=== PATIENT | female | born 1960 | race Caucasian/White ===

== ENCOUNTER 2020-07-03 13:44 | Emergency (ER) | payer OTHER ==
--- OUTSIDE RECORDS SUMMARY | 2020-07-03 13:49 | XMS REPORT | Continuity of Care Document ---
:1960 Author Organization [facility] t Address [address] [place] [address] Care Team Providers Name Role Phone Leif Prather MD Primary Care Physician Jose Attending Clinician [phone] [place] CHE, Loulou Attending Clinician Belkis Ivory Attending Clinician CHRISTI Attending Clinician Unavailable Antonio Murphy Attending Clinician GUANAKITO Admitting Clinician Unavailable Belkis Ivory Admitting Clinician Antonio Murphy Admitting Clinician Payers Payer Name Policy Type Policy Effective Date Expiration Date Sour ce Number CIGNACIGNA OPEN [id number] 2016 [place] ACCESS/NETWORKxx 00:00:00 Methodis t [id number] [id number] Problems Condition Condition Condition Status Onset Resolution Last Treating Co mments Source Name Details Category Date Date Treatment Clinician Date Acid Problem Active 2018-01-30 Memor ia reflux 05:00:30 l (finding) Acid [place] reflux (finding) Active Problem 01/30/2018 [facility] Hiatal Problem Active 2018-01-30 Memor ia hernia 05:00:30 l (disorder) Hiatal Herm tariq hernia (disorder) Active Problem 01/30/2018 [facility] Hypothyroi Problem Active 2018-01-30 M emoria dism 05:00:30 l (disorder) Atul n Hypothyroi dism (disorder) Active Problem 01/30/2018 [facility] History of History of Problem Resolve [facility] Bunion Bunion [facility] [place] [facility] History of History of Problem Resolve Univers Ganglion, Ganglion, d ity of joint joint [place] [facility] History of History of Problem Resolve Univers gastric gastric d ity of ulcer ulcer [place] [facility] History of History of Problem Resolve Univers hiatal hiatal d ity of hernia hernia [place] [facility] History of History of Problem Resolve Univers malignant malignant d ity of neoplasm neoplasm [place] of cervix of cervix Phys ici ans History of History of Problem Resolve Univers Sprain of Sprain of d ity of deltoid deltoid [place] ligament ligament Physic i of right of right ans ankle, ankle, initial initial encounter encounter Sprain of Sprain of Problem Active Uni vers left left ity of rotator rotator [place] cuff cuff Physici capsule, capsule, ans subsequent subsequent encounter encounter History of History of Problem Resolve Univers thyroid thyroid d ity of disorder disorder [place] [facility] Rupture of Rupture of Problem Active U nivers left left ity of biceps biceps [place] tendon tendon Physici ans Spontaneou Spontaneou Problem Active U nivers s rupture s rupture ity of of other of other [place] tendon of tendon of Phys ici left upper left upper an s arm arm History of Past Illness Condition Condition Condition Status Onset Resolution Last Treating Co mments Source Name Details Category Date Date Treatment Clinician Date Stress Problem 2017-022018-01-30 2018-01-30 M emoria incontinen 2-17 05:00:30 05:00:30 l ce Stress 06:00: Home (female) incontinen 00 (male) ce (female) (male) 01/28/2018 01/30/2018 [facility] Allergies, Adverse Reactions, Alerts Allergy Allergy Status Severity Reaction(s) Onset Inactive Treating Comm ents Source Name Type Date Date Clinician No Known DA Active U 2015-02 DAYLIN Allergie 0-26 Maria [facility] s [facility]: [facility] No Known No Known Active Memori a Medicati Medicati l on on Home Benson s s Social History Social Habit Start Date Stop Date Quantity Comments Source Tobacco use and 2019-10-30 2019-10-30 Never used [facility] [place] ethodist exposure 00:00:00 00:00:00 Alcohol intake 2019-10-30 2019-10-30 Current drinker [place] on [facility] 00:00:00 00:00:00 of alcohol (finding) Alcohol Comment 2019-10-28 2019-10-28 socially Yakov Tamayo ethodist 00:00:00 00:00:00 Sex [birth year] At [birth year] Yakov Tamayo ethodist 00:00:00 00:00:00 Smoking Status Start Date Stop Date Source Never smoker Yakov staley Social History 2016-01-12 14:43:22 2016-01-12 14:43:22 [facility] Medications Ordered Filled Start Stop Current Ordering Indication Dosage Frequency Signature Comments Components Source Medication Medication Date Date Medication? Clinician (SIG) Name Name omeprazole 2020-0 Yes 20mg Q.5D Take 20 mg [place] (PriLOSEC) 9-16 by mouth 2 Met hodi 20 MG 09:44: (two) st capsule 29 times a day. levothyroxi 2020-0 Yes 50ug QD Take 50 Anish ston ne 9-16 mcg by Methodi (SYNTHROID) 09:44: mouth st 50 mcg 29 daily. tablet estradioL 2020-0 Yes 1{patch Q.5W Place 1 Ho [facility] (VIVELLE-DO 9-16 } patch on Meth cj T) 0.0375 09:44: the skin 2 st mg/24 hr 29 (two) times a week. Morphine 2017-02 No 2 mg, IV Memor ia 2-17 Push, l 21:05: q5min PRN for pain severe (7-10), order duration: 5 doses, first dose 01/28/18 15:05:00 FOOD INSPECTOR, stop date Limited # of times Demerol HCl 2017-02 No 12.5 mg = M emoria 2-17 0.5 mL, l 21:05: Injection, IV Push, q5min PRN for Pain Mild (1-3), order duration: 4 doses, first dose 01/28/18 15:05:00 FOOD INSPECTOR, stop date Limited # of times promethazin 2017-02 No 12.5 mg, Me moria e IVPB 2-17 IV l 21:05: Piggyback, Once PRN for nausea/vom iting, infuse over 15 minutes, first dose 12/17/18 15:05:00 FOOD INSPECTOR Misc 2017-02 No 600 mL, Memoria Medication 2-17 Soln-IV, l 20:56: IV, Once, [place] 00 first dose 01/28/18 14:56:00 FOOD INSPECTOR, stop date 01/28/18 14:56:00 FOOD INSPECTOR ketorolac 2017-02 No 30 mg = 1 Mem oria 2-17 mL, l 20:22: Injection, Home 00 IV, Once, first dose 01/28/18 14:22:00 FOOD INSPECTOR, stop date 01/28/18 14:22:00 FOOD INSPECTOR ondansetron 2017-02 No 4 mg = 2 Me moria 2-17 mL, l 20:22: Injection, [place] 00 IV, Once, first dose 01/28/18 14:22:00 FOOD INSPECTOR, stop date 01/28/18 14:22:00 FOOD INSPECTOR dexamethaso 2017-02 No 4 mg = 1 Me moria ne 2-17 mL, l 20:22: Injection, [place] 00 IV, Once, first dose 01/28/18 14:22:00 FOOD INSPECTOR, stop date 01/28/18 14:22:00 FOOD INSPECTOR propofol 2017-02 No 200 mg = Memor ia 2-17 20 mL, l 20:21: Emulsion, Home 00 IV, Once, first dose 01/28/18 14:21:00 FOOD INSPECTOR, stop date 01/28/18 14:21:00 FOOD INSPECTOR lidocaine 2017-02 No 100 gm = 5 Me moria 2-17 mL, l 20:21: Injection, [place] 00 IV, Once, first dose 01/28/18 14:21:00 FOOD INSPECTOR, stop date 01/28/18 14:21:00 FOOD INSPECTOR fentaNYL 2017-02 No 100 mcg = Gavino luisito 2-17 2 mL, l 20:18: Injection, [place] 00 IV, Once, first dose 01/28/18 14:18:00 FOOD INSPECTOR, stop date 01/28/18 14:18:00 FOOD INSPECTOR midazolam 2017-02 No 2 mg = 2 Gavino luisito 2-17 mL, l 20:18: Injection, Home 00 IV, Once, first dose 01/28/18 14:18:00 FOOD INSPECTOR, stop date 01/28/18 14:18:00 FOOD INSPECTOR ceFAZolin 2017-02 No 2 gm, Memoria 2-17 Soln-IV, l 20:16: IV, Once, [place] first dose 01/28/18 14:16:00 FOOD INSPECTOR, stop date 01/28/18 14:16:00 FOOD INSPECTOR Pain Ease 2017-02 No 1 sprays, Mem oria topical 2-17 [place], l spray 19:00: TOP, Once, Atul n first dose 01/28/18 13:00:00 FOOD INSPECTOR, stop date 01/28/18 13:00:00 FOOD INSPECTOR, Apply topically for 4 - 10 seconds from a distance of 3 - 7 inches from the procedure site Cefazolin 2017-02 No 2 gm, Memoria 2-17 Soln-IV, l 19:00: IV Home Piggyback, Once, infuse over 30 minutes, first dose 01/28/18 13:00:00 FOOD INSPECTOR, stop date 01/28/18 13:00:00 FOOD INSPECTOR, Prophylaxi s LR 1,000 mL 2017-02 No 1,000 mL, M emoria 2-17 IV, 100 l 18:47: mL/hr, Home 00 start date 01/28/18 12:47:00 FOOD INSPECTOR, For Adults levothyroxi 2017-02 Yes 50 mcg = 1 Memoria ne 50 mcg 2-10 caps, l (0.05 mg) 18:30: Oral, [place] oral 00 Daily, 0 capsule Refill(s) Demerol HCl 2016-02 No 12.5 mg = M emoria 2-15 0.5 mL, l 15:31: Injection, [place] 00 IV Push, q5min PRN for Pain Mild (1-3), order duration: 4 doses, first dose 01/26/17 9:31:00 FOOD INSPECTOR, stop date Limited # of times morphine 2016-02 No 1 mg = 0.1 Mem oria 2-15 mL, l 15:31: Injection, Home 00 IV Push, q5min PRN for Pain Moderate (4-6), order duration: 5 doses, first dose 01/26/17 9:31:00 FOOD INSPECTOR, stop date Limited # of times ondansetron 2016-02 No 4 mg = 2 Me moria 2-15 mL, l 15:31: Injection, Home 00 IV Push, q30min PRN for nausea/vom iting, order duration: 2 doses, first dose 01/26/17 9:31:00 FOOD INSPECTOR, stop date Limited # of times Misc 2016-02 No 600 mL, Memoria Medication 2-15 Soln-IV, l 15:26: IV, Once, first dose 01/26/17 9:26:00 FOOD INSPECTOR, stop date 01/26/17 9:26:00 FOOD INSPECTOR morphine 2016-02 No 10 mg = 1 Gavino luisito 2-15 mL, l 15:14: Injection, Home 00 IV, Once, first dose 01/26/17 9:14:00 FOOD INSPECTOR, stop date 01/26/17 9:14:00 FOOD INSPECTOR ondansetron 2016-02 No 4 mg = 2 Me moria 2-15 mL, l 14:09: Injection, [place] 00 IV, Once, first dose 01/26/17 8:09:00 FOOD INSPECTOR, stop date 01/26/17 8:09:00 FOOD INSPECTOR dexamethaso 2016-02 No 8 mg = 2 Me moria ne 2-15 mL, l 13:43: Injection, [place] 00 IV, Once, first dose 01/26/17 7:43:00 FOOD INSPECTOR, stop date 01/26/17 7:43:00 FOOD INSPECTOR lidocaine 2016-02 No 1 patti, Memori a topical 2-15 Soln, IV, l 13:33: Once, first dose 01/26/17 7:33:00 FOOD INSPECTOR, stop date 01/26/17 7:33:00 FOOD INSPECTOR rocuronium 2016-02 No 40 mg = 4 Me moria 2-15 mL, l 13:31: Injection, [place] 00 IV, Once, first dose 01/26/17 7:31:00 FOOD INSPECTOR, stop date 01/26/17 7:31:00 FOOD INSPECTOR propofol 2016-02 No 200 mg = Memor ia 2-15 20 mL, l 13:31: Emulsion, [place] 00 IV, Once, first dose 01/26/17 7:31:00 FOOD INSPECTOR, stop date 01/26/17 7:31:00 FOOD INSPECTOR lidocaine 2016-02 No 5 mL, Memoria 2-15 Injection, l 13:31: IV, Once, Home 00 first dose 01/26/17 7:31:00 FOOD INSPECTOR, stop date 01/26/17 7:31:00 FOOD INSPECTOR ceFAZolin 2016-02 No 1 gm, Memoria 2-15 Soln-IV, l 13:26: IV, Once, Home 00 first dose 01/26/17 7:26:00 FOOD INSPECTOR, stop date 01/26/17 7:26:00 FOOD INSPECTOR ropivacaine 2016-02 No 150 mg = Me moria 2-15 30 mL, l 13:15: Injection, [place] 00 Nerve Block, Once, first dose 01/26/17 7:15:00 FOOD INSPECTOR, stop date 01/26/17 7:15:00 FOOD INSPECTOR midazolam 2016-02 No 2 mg = 2 Gavino luisito 2-15 mL, l 13:12: Injection, Home 00 IV, Once, first dose 01/26/17 7:12:00 FOOD INSPECTOR, stop date 01/26/17 7:12:00 FOOD INSPECTOR fentaNYL 2016-02 No 100 mcg = Gavino luisito 2-15 2 mL, l 13:12: Injection, [place] 00 IV, Once, first dose 01/26/17 7:12:00 FOOD INSPECTOR, stop date 01/26/17 7:12:00 FOOD INSPECTOR Pain Ease 2016-02 No 1 sprays, Mem oria topical 2-15 [place], l spray 13:00: TOP, Once, Atul n 00 first dose 01/26/17 7:00:00 FOOD INSPECTOR, stop date 01/26/17 7:00:00 FOOD INSPECTOR, Apply topically for 4 - 10 seconds from a distance of 3 - 7 inches from the procedure site Cefazolin 2016-02 No 1 gm, Memoria 2-15 Soln-IV, l 13:00: IV Home 00 Piggyback, Once, infuse over 30 minutes, first dose 01/26/17 7:00:00 FOOD INSPECTOR, stop date 01/26/17 7:00:00 FOOD INSPECTOR, Prophylaxi s Vitamin C 2016-02 Yes Daily, 0 Gavino luisito 2-15 Refill(s) l 12:29: [place] 00 Vitamin B 2016-02 Yes 0 Memoria Complex 100 2-15 Refill(s) l 12:28: Home 00 Vitamin D 2016-02 Yes tabs, Memoria with 2-15 Oral, l Minerals 12:28: Daily, 0 Kari nn oral tablet 00 Refill(s) LR 1,000 mL 2016-02 No 1,000 mL, M emoria 2-15 IV, 100 l 12:05: mL/hr, [place] 00 start date 01/26/17 6:05:00 FOOD INSPECTOR, For Adults Misc 2015-02 No Mirela 50 mL, Memoria Medication 2-06 Russell-Robe Soln-IV, l 17:31: rts IV, Once, [place] 00 first dose 01/18/16 11:31:00 FOOD INSPECTOR, stop date 01/18/16 11:31:00 FOOD INSPECTOR Misc 2015-02 No Mirela 1,000 mL, Memor ia Medication 2-06 [place]-R[place] Soln-IV, l 17:13: rts IV, Once, Home 00 first dose 01/18/16 11:13:00 FOOD INSPECTOR, stop date 01/18/16 11:13:00 FOOD INSPECTOR glycopyrrol 2015-02 No Mirela 0.4 mg = 2 Memoria ate 2-06 [place]-Robe mL, l 17:11: rts Injection, Home 00 IV, Once, first dose 01/18/16 11:11:00 FOOD INSPECTOR, stop date 01/18/16 11:11:00 FOOD INSPECTOR neostigmine 2015-02 No Mirela 3 mg = 3 Memoria 2-06 [place]-Robe mL, l 17:11: rts Injection, Home 00 IV, Once, first dose 01/18/16 11:11:00 FOOD INSPECTOR, stop date 01/18/16 11:11:00 FOOD INSPECTOR dexamethaso 2015-02 No Mirela 4 mg = 1 Memoria ne 2-06 Russell-Robe mL, l 15:52: rts Injection, Home 00 IV, Once, first dose 01/18/16 9:52:00 FOOD INSPECTOR, stop date 01/18/16 9:52:00 FOOD INSPECTOR ondansetron 2015-02 No Mirela 4 mg = 2 Memoria 2-06 [place]-Robe mL, l 15:52: rts Injection, Home 00 IV, Once, first dose 01/18/16 9:52:00 FOOD INSPECTOR, stop date 01/18/16 9:52:00 FOOD INSPECTOR lidocaine 2015-02 No Mirela 1 patti, Mem oria topical 2-06 [place]-R[place] Soln, IV, l 15:34: rts Once, Home 00 first dose 01/18/16 9:34:00 FOOD INSPECTOR, stop date 01/18/16 9:34:00 FOOD INSPECTOR lidocaine 2015-02 No Mierla 5 mL, Gavino luisito 2-06 Russell-Robe Injection, l 15:33: rts IV, Once, [place] 00 first dose 01/18/16 9:33:00 FOOD INSPECTOR, stop date 01/18/16 9:33:00 FOOD INSPECTOR propofol 2015-02 No Mirela 200 mg = Me moria 2-06 Russell-Robe 20 mL, l 15:33: rts Emulsion, [place] 00 IV, Once, first dose 01/18/16 9:33:00 FOOD INSPECTOR, stop date 01/18/16 9:33:00 FOOD INSPECTOR rocuronium 2015-02 No Mirela 50 mg = 5 Memoria 2-06 [place] mL, l 15:33: rts Injection, Home 00 IV, Once, first dose 01/18/16 9:33:00 FOOD INSPECTOR, stop date 01/18/16 9:33:00 FOOD INSPECTOR ceFAZolin 2015-02 No Mirela 1 gm, Gavino luisito 2-06 [place] Powder-Inj l 15:28: rts , IV, [place] 00 Once, first dose 01/18/16 9:28:00 FOOD INSPECTOR, stop date 01/18/16 9:28:00 FOOD INSPECTOR ropivacaine 2015-02 No Mirela 150 mg = Memoria 2-06 [place] 30 mL, l 15:00: rts Injection, Home 00 IV, Once, first dose 01/18/16 9:00:00 FOOD INSPECTOR, stop date 01/18/16 9:00:00 FOOD INSPECTOR midazolam 2015-02 No Mirela 2 mg = 2 M emoria 2-06 Russell-Robe mL, l 14:50: rts Injection, [place] 00 IV, Once, first dose 01/18/16 8:50:00 FOOD INSPECTOR, stop date 01/18/16 8:50:00 FOOD INSPECTOR fentaNYL 2015-02 No Mirela 100 mcg = M emoria 2-06 Russell-Robe 2 mL, l 14:50: rts Injection, [place] 00 IV, Once, first dose 01/18/16 8:50:00 FOOD INSPECTOR, stop date 01/18/16 8:50:00 FOOD INSPECTOR ceFAZolin 2015-02 No Junior G 1 gm, Mem oria 2-06 [place] Soln-IV, l 14:00: IV Home 00 Piggyback, Once, infuse over 30 minutes, first dose 01/18/16 8:00:00 FOOD INSPECTOR, stop date 01/18/16 8:00:00 FOOD INSPECTOR, Prophylaxi s lidocaine 2015-02 No Jay Tamayo 0.5 mL, Me moria 1% 2- Lastoczy Injection, l injectable 14:00: Subcutaneo H ermann solution 00 us, Once, first dose 01/18/16 8:00:00 FOOD INSPECTOR, stop date 01/18/16 8:00:00 FOOD INSPECTOR LR 1,000 mL 2015-02 No Jay M 1,000 mL, Memoria 2-06 Lastoczy IV, 100 l 13:29: mL/hr, Home 00 start date 01/18/16 7:29:00 FOOD INSPECTOR, For Adults Estradiol 2015-02 Yes 1 patches, Me moria Patch 1-30 TOP, l 0.0375 14:41: qWeek, 0 Home mg/24 hours 00 Refill(s) weekly transdermal film, extended release Estradiol 2015-02 Yes 1 patches, Me moria Patch 1-30 TOP, l 0.0375 14:41: qWeek, 0 [place] mg/24 hours 00 Refill(s) weekly transdermal film, extended release Omeprazole 2015-02 Yes 40 mg = 2 Me moria 20 MG 1-30 tabs, l Enteric 14:40: Oral, [place] Coated 00 Daily, 0 Tablet Refill(s) omeprazole 2015-02 Yes 40 mg = 2 Me moria 20 mg oral 1-30 tabs, l delayed 14:40: Oral, Home release 00 Daily, 0 tablet Refill(s) Thyroid Thyroid Yes [facility] TABS TABS [facility] [place] [facility] Immunizations Ordered Immunization Filled Immunization Date Status Commen ts Source Name Name PFIZER COVID-19 MRNA 2020-05-26 Completed [place] VACCINATION 00:00:00 [facility] PFIZER COVID-19 MRNA 2020-04-28 Completed [place] VACCINATION 00:00:00 [facility] Vital Signs Vital Name Observation Time Observation Value Comments Source Systolic (mm Hg) 2018-01-28 21:30:00 Gavino Bhat Diastolic (mm Hg) 2018-01-28 21:30:00 Cristine Bhat Heart Rate 2018-01-28 21:30:00 [facility] Respitory Rate 2018-01-28 21:30:00 [facility] al [place] Systolic (mm Hg) 2018-01-28 21:15:00 Gavino rial Home Diastolic (mm Hg) 2018-01-28 21:15:00 Mem orial [place] Heart Rate 2018-01-28 21:15:00 [facility] [place] Respitory Rate 2018-01-28 21:15:00 Memori al [place] Systolic (mm Hg) 2018-01-28 21:10:00 Gavino rial Home Diastolic (mm Hg) 2018-01-28 21:10:00 Mem orial [place] Respitory Rate 2018-01-28 21:10:00 Memori al Home Heart Rate 2018-01-28 21:10:00 [facility] [place] Temperature Oral (F) 2018-01-28 21:00:00 36.5 Salma [facility] [place] Height 2018-01-28 18:59:00 65 cm [facility] Temperature Oral (F) 2018-01-28 18:59:00 36.7 [facility] [place] Height 2017-04-30 15:47:00 66 [in_us] [facility] Physician s Weight 2017-04-30 15:47:00 114 [lb_av] [facility] Physician s Body Mass Index 2017-04-30 15:47:00 18.4 kg/m2 [facility] Physician s Heart Rate 2017-01-26 15:45:00 [facility] [place] Systolic (mm Hg) 2017-01-26 15:45:00 Gavino rial Home Diastolic (mm Hg) 2017-01-26 15:45:00 Mem orial Home Respitory Rate 2017-01-26 15:45:00 Memori al Home Systolic (mm Hg) 2017-01-26 15:40:00 Gavino rial Home Diastolic (mm Hg) 2017-01-26 15:40:00 Mem orial [place] Respitory Rate 2017-01-26 15:40:00 Memori al Home Heart Rate 2017-01-26 15:40:00 [facility] Respitory Rate 2017-01-26 15:35:00 Memori al [place] Systolic (mm Hg) 2017-01-26 15:35:00 Gavino rial Home Diastolic (mm Hg) 2017-01-26 15:35:00 Mem orial [place] Heart Rate 2017-01-26 15:35:00 [facility] Temperature Oral (F) 2017-01-26 15:26:00 36.2 Salma [facility] [place] Height 2017-01-26 12:21:00 165 cm [facility] [place] Temperature Oral (F) 2017-01-26 12:21:00 36.9 [facility] Height 2017-01-17 18:21:00 165 cm [facility] [place] Systolic (mm Hg) 2016-01-18 18:00:00 Gavino rial Home Heart Rate 2016-01-18 18:00:00 [facility] Respitory Rate 2016-01-18 18:00:00 Memori al Home Systolic (mm Hg) 2016-01-18 17:50:00 Gavino rial Home Respitory Rate 2016-01-18 17:50:00 Memori al Home Heart Rate 2016-01-18 17:50:00 [facility] Systolic (mm Hg) 2016-01-18 17:45:00 Gavino rial [place] Respitory Rate 2016-01-18 17:45:00 Memori al [place] Heart Rate 2016-01-18 17:45:00 [facility] [place] Temperature Oral (F) 2016-01-18 17:36:00 36.2 [facility] Temperature Oral (F) 2016-01-18 14:00:00 36.5 [facility] Weight 2016-01-12 14:38:00 [facility] [place] Height 2016-01-12 14:38:00 165 cm [facility] Procedures Procedure Date / Time Performing Clinician Source Performed MANOMETRY, ESOPHAGEAL 2019-10-29 08:43:00 Claudia Alfonso n [facility] MONITORING, ESOPHAGEAL 2019-10-29 08:43:00 Claudia Alfonso on [facility]ism PH, 24 HOUR COVID-19 QUALITATIVE 2019-10-27 09:35:00 Claudia Alfonso [facility] PCR right shoulder scope [facility] He rmann breast implants [facility] [place] replaced left shoulder scope [facility] Her garnett breast augmentation [facility] Her garnett hysterectomy [facility] Home left wrist [facility] fracture<sup>1</sup> tumor from abdomen [facility] tariq removed History of Wrist [facility] surgery Physicians History of Hysterectomy [facility] Physicians History of Rotator cuff [facility] repair Physicians History of Carpal [facility] tunnel surgery Physicians Plan of Care Planned Activity Planned Date Details Comments Source Future Scheduled 2020-09-12 INFLUENZA VACCINE [place] [facility] Test 00:00:00 [code = INFLUENZA VACCINE] Future Scheduled 2011-04-27 BREAST CANCER [place] [facility] Test 00:00:00 SCREENING [code = BREAST CANCER SCREENING] Future Scheduled 2011-04-27 COLONOSCOPY SCREENING [place] [facility] Test 00:00:00 [code = COLONOSCOPY SCREENING] Future Scheduled 2011-04-27 SHINGLES VACCINES [place] [facility] Test 00:00:00 (#1) [code = SHINGLES VACCINES (#1)] Future Scheduled 1982 Screening for [place] [facility] Test 00:00:00 malignant neoplasm of cervix (procedure) [code = 413736347] Future Scheduled 1979-04-27 Hepatitis C screening [place] [facility] Test 00:00:00 (procedure) [code = 392686528] Encounters Start End Encounter Admission Attending Care Care Encounter Source Date/Time Date/Time Type Type Clinicians Facility Department ID 2019-09-19 Outpatient MHNE ABHI [id number] [address] 08:44:30 2020-06-21 2020-06-21 Outpatient CLOVIS Garcia [facility] [id number] 00:00:00 00:00:00 Sadie [id number] 2020-05-26 2020-05-26 Outpatient [facility] [id number] [place] 00:00:00 00:00:[address] 2020-04-28 2020-04-28 Outpatient [facility] [id number] [place] 00:00:00 00:00:[address] 2020-02-21 2020-02-21 Emergency E MHNE MHNE [id number] MHNE 13:50:00 13:50:00 2020-02-20 2020-02-20 Emergency E MHNE MHNE [id number] MHNE 10:29:00 10:29:00 2020-02-18 2020-02-18 Outpatient MHNE ABHI [id number] MHNE 08:00:00 08:00:00 2019-10-29 2019-10-29 [facility] [id number] [place] 00:00:00 00:00:00 APURV [address] 2019-10-27 2019-10-27 Outpatient GUANAKITO, [facility] [id number] [address] [place] [address] 00:00:00 00:00:00 APURV [address] 2018-01-28 2018-01-28 Outpatient Ivory, [id number] 12:43:00 15:54:00 [place]ia Tamayo 8 2017-04-30 2017-04-30 Appointmen CHRISTI, UTP UTP [id number] Univers 15:30:00 15:30:00 t; JUNIOR Orthopedic Josselin M.D. Surgery - [place] OWUSU M.D. ans 2017-03-19 2017-03-19 Appointmen CHRISTI, AUGUSTO UTP [id number] Univers 15:30:00 15:30:00 t; Josselin OWUSU M.D. [place] [facility] OWUSU M.D. [facility] 2017-01-26 2017-01-26 Outpatient Scobercea, [id number] 06:02:30 10:19:00 Junior Alvarez 8 2016-12-21 2016-12-21 Outpatient Scobercea, [id number] 14:37:56 23:59:59 Junior Alvarez 8 2016-01-18 2016-01-[address] 06:54:28 12:29:00 [facility] Results Test Description Test Time Test Comments Results Result [facility] e Comments - US ABDOMEN 2019-07-25 FAX: Branidn COMPLETE 14:49:00 Rocky Woodard Jr, MD [phone] [place]: St: REG FAX: Angelica Lopez [phone] Name: TINO GAUTHIER [facility] : 1960 Age/S: 59/F [address] Unit #: [id number] Loc: [place] [address] Phys: Rocky Woodard Jr, MD Acct: [id number] Dis Date: Status: REG CLI PHONE #: [phone] Exam Date: 07/25/2019 1353 FAX #: [phone] Reason: EPIGASTRIC PAIN EXAMS: CPT CODE: [id number] US ABDOMEN COMPLETE [id number] EXAMINATION: - US ABDOMEN COMPLETE. LOCATION: S17. HISTORY: Epigastric/abdominal pain, nausea. COMPARISON: None. TECHNIQUE: Examination of the liver, spleen, kidneys, pancreas, gallbladder, bile ducts, aorta and inferior vena cava was performed. FINDINGS: The visualized liver parenchyma is homogeneous in echogenicity. The main portal vein is patent. There is no intra or extrahepatic biliary ductal dilatation. The common duct measures 4 mm. The gallbladder demonstrates possible dependent sludge without wall thickening. The visualized pancreatic head and body appears unremarkable, evaluation of the tail is limited by overlying bowel gas. Spleen is unremarkable in size. The right and left kidney measure 10.2 cm and 10 cm respectively. There is no hydronephrosis. The visualized portions of abdominal aorta demonstrates atherosclerosis. IVC appear unremarkable. IMPRESSION: Possible gallbladder sludge. at 1440 Reported and signed by: Everette Ireland MD CC: Rocky Woodard Jr; Angelica Pulliam Technologist: Nidhi Shahid RDSD Trnscrd Date/Time/By: 07/25/2019 (4940) : By: [email or web address] PAGE 1 Signed Report FAX: Rocky Meyer Jr, MD [phone] [place]: St: REG FAX: Angelica Lopez [phone] Name: TINO GAUTHIER [facility] [place] : 1960 Age/S: 59/F [address] Unit #: [id number] Loc: [place] [address] Phys: Rocky Woodard Jr, MD Acct: [id number] Dis Date: Status: REG CLI PHONE #: [phone] Exam Date: 07/25/2019 0411 FAX #: [phone] Reason: EPIGASTRIC PAIN EXAMS: CPT CODE: [id number] US ABDOMEN COMPLETE [id number] <Continued> Orig Print D/T: S: 07/25/2019 (9315) PAGE 2 Signed Report
[2020-07-03] MEDS ORDERED: MORPHINE 4 MG/ML SYR ONE (14:09)
[2020-07-03] MEDS ORDERED: ONDANSETRON 4 MG/2 ML VIAL ONE (14:10)
--- NOTE | 2020-07-03 14:17 | RAD REPORT ---
EXAM DESCRIPTION: RAD - Forearm Right - 07/03/2020 2:09 pm CLINICAL HISTORY: FB;Pain Laceration COMPARISON: No comparisons FINDINGS: No fracture or radiopaque foreign body is seen.
[2020-07-03] MEDS ORDERED: HYDROMORPHONE HCL 0.5 MG/0.5 ML INJ ONE ×2 (14:24→14:36)
[2020-07-03] MEDS ORDERED: KETOROLAC 30 MG/ML INJ ONE (15:25)
--- NOTE | 2020-07-03 15:47 | EDPHYS ---
Physician Documentation [facility] Name: Dana Salinas Age: 60 yrs Sex: Female : 1960 Arrival Date: 07/03/2020 Time: 13:45 Bed 6 Private MD: ED Physician Mihir Naik HPI: 07/03 15:48 This 60 yrs old Female presents to ER via EMS with complaints of Stingray jr8 injury. 15:48 The complaints affect the palmar aspect of right forearm. Onset: The symptoms/episode jr8 began/occurred acutely, today. Modifying factors: The symptoms are alleviated by nothing. the symptoms are aggravated by nothing. Associated signs and symptoms: The patient has no apparent associated signs or symptoms. Severity of symptoms: At their worst the symptoms were moderate, in the emergency department the symptoms are unchanged. The patient has not experienced similar symptoms in the past. The patient has not recently seen a physician. 15:53 Patient was trying to detach a stingray from her fishing poll when it snapped back and jr8 stung her in the right arm. Historical: - Allergies: 13:48 No Known Allergies; em - PMHx: 13:48 None; em - PSHx: 13:48 Cholecystectomy; shoulder; em - Immunization history:: Adult Immunizations up to date. - Social history:: Smoking status: Patient denies any tobacco usage or history of. ROS: 15:53 Eyes: Negative for injury, pain, redness, and discharge, ENT: Negative for injury, jr8 pain, and discharge, Neck: Negative for injury, pain, and swelling, Cardiovascular: Negative for chest pain, palpitations, and edema, Respiratory: Negative for shortness of breath, cough, wheezing, and pleuritic chest pain, Abdomen/GI: Negative for abdominal pain, nausea, vomiting, diarrhea, and constipation, Back: Negative for injury and pain, Neuro: Negative for headache, weakness, numbness, tingling, and seizure. 15:53 MS/extremity: Positive for ecchymosis, pain, puncture, tenderness, of the palmar aspect of right forearm. Exam: 15:53 Cardiovascular: Regular rate and rhythm with a normal S1 and S2. No gallops, murmurs, jr8 or rubs. Normal PMI, no JVD. No pulse deficits. Respiratory: Lungs have equal breath sounds bilaterally, clear to auscultation and percussion. No rales, rhonchi or wheezes noted. No increased work of breathing, no retractions or nasal flaring. Skin: Warm, dry with normal turgor. Normal color with no rashes, no lesions, and no evidence of cellulitis. Neuro: Awake and alert, GCS 15, oriented to person, place, time, and situation. Cranial nerves II-XII grossly intact. Motor strength 5/5 in all extremities. Sensory grossly intact. Cerebellar exam normal. Normal gait. 15:53 Constitutional: The patient appears alert, awake, in obvious pain. 15:53 Musculoskeletal/extremity: Extremities: grossly normal except: noted in the palmar aspect of right forearm: Patient has small sub centimeter puncture wound noted to palmar aspect right mid forearm. Mild swelling and ecchymosis noted. No palpated foreign body noted or seen , ROM: intact in all extremities, Circulation is intact in all extremities. Sensation intact. Vital Signs: 13:46 BP 162 / 94; Pulse 81; Resp 16; Temp 97.6; Pulse Ox 97% on R/A; Weight 72.57 kg; Height em 5 ft. 6 in. (167.64 cm); Pain 10/10; 14:15 BP 165 / 95; Pulse 95; Resp 18; Pulse Ox 98% on R/A; tr6 13:46 Body Mass Index 25.82 (72.57 kg, 167.64 cm) em MDM: 13:46 Patient medically screened. jr8 15:45 Data reviewed: vital signs, nurses notes, radiologic studies, plain films, and as a jr8 result, I will discharge patient. Data interpreted: Pulse oximetry: on room air is 98 %. Interpretation: normal. Counseling: I had a detailed discussion with the patient and/or guardian regarding: the historical points, exam findings, and any diagnostic results supporting the discharge/admit diagnosis, radiology results, the need for outpatient follow up, a family practitioner, to return to the emergency department if symptoms worsen or persist or if there are any questions or concerns that arise at home. Response to treatment: the patient's symptoms have mildly improved after treatment. 07/03 13:48 Order name: XRAY Forearm RIGHT; Complete Time: 14:20 jr8 07/03 13:48 Order name: IV; Complete Time: 13:53 jr8 Administered Medications: 13:51 Drug: Zofran (Ondansetron) 4 mg Route: IVP; Site: left antecubital; em 14:07 Follow up: Response: No adverse reaction em 13:53 Drug: morphine 4 mg Route: IVP; Site: left antecubital; em 14:03 Follow up: Response: No adverse reaction; No change in condition; Pain is unchanged, em physician notified 14:20 Drug: Dilaudid (HYDROmorphone) 1 mg Route: IVP; Site: left antecubital; em 14:46 Follow up: Response: No adverse reaction; No change in condition; Pain is unchanged, em physician notified 15:08 Drug: Ketorolac 30 mg Route: IVP; Site: left antecubital; tr6 15:30 Follow up: Response: No adverse reaction em 15:42 Not Given (Physician Discretion): Dilaudid (HYDROmorphone) 2 mg IVP once; RASS on em ADMIN: Combtv4, Very Agttd3, Agttd2, Rstlss1, AlertClm0, Drwsy-1, Lt Sdtn-2, Mod Sdtn-3, Dp Sdtn-4, UnArsble-5 15:42 Drug: Tetanus-Diphtheria Toxoid Ped 0.5 ml {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 Lot #: [id number]. } Route: IM; Site: left deltoid; 16:01 Follow up: Response: No adverse reaction em Disposition: 17:59 Co-signature as Attending Physician, Mihir Naik MD I agree with the assessment and kdr plan of care. Disposition: 07/03/20 15:46 Discharged to Home. Impression: Toxic effect of contact with stingray, accidental (unintentional). - Condition is Stable. - Discharge Instructions: Marine Life Injury. - Prescriptions for Cipro 500 mg Oral Tablet - take 1 tablet by ORAL route every 12 hours for 10 days; 20 tablet. Tylenol- Codeine #3 300-30 mg Oral Tablet - take 2 tablets by ORAL route every 4-6 hours As needed; 20 tablet. - Medication Reconciliation Form, Thank You Letter, Antibiotic Education, Prescription Opioid Use form. - Follow up: Private Physician; When: 2 - 3 days; Reason: Recheck today's complaints, Continuance of care, Re-evaluation by your physician. - Problem is new. - Symptoms have improved. Signatures: Dispatcher [employer] Mihir Jimenez MD MD kdr Munoz, Edgar, RN RN Bird Bray PA PA jr8 Mirela Teran RN RN tr6 Corrections: (The following items were deleted from the chart) 16:02 15:46 07/03/2020 15:46 Discharged to Home. Impression: Toxic effect of contact with em stingray, accidental (unintentional). Condition is Stable. Forms are Medication Reconciliation Form, Thank You Letter, Antibiotic Education, Prescription Opioid Use. Follow up: Private Physician; When: 2 - 3 days; Reason: Recheck today's complaints, Continuance of care, Re-evaluation by your physician. Problem is new. Symptoms have improved. jr8
--- NOTE | 2020-07-03 15:47 | ER ---
Nurse's Notes [facility] Name: Dana Salinas Age: 60 yrs Sex: Female : 1960 Arrival Date: 07/03/2020 Time: 13:45 Bed 6 Private MD: Diagnosis: Toxic effect of contact with stingray, accidental (unintentional) Presentation: 07/03 13:46 Chief complaint: [place] her in the em right forearm about 1 hour ago, no other injuries. Coronavirus screen: Client denies travel out of the [place] in the last 14 days. Ebola Screen: Patient negative for fever greater than or equal to 101.5 degrees Fahrenheit, and additional compatible Ebola Virus Disease symptoms Patient denies exposure to infectious person. Patient denies travel to an Ebola-affected area in the 21 days before illness onset. No symptoms or risks identified at this time. Initial Sepsis Screen: Does the patient meet any 2 criteria? No. Patient's initial sepsis screen is negative. Does the patient have a suspected source of infection? No. Patient's initial sepsis screen is negative. Risk Assessment: Do you want to hurt yourself or someone else? Patient reports no desire to harm self or others. Onset of symptoms was July 03, 2020. 13:46 Method Of Arrival: EMS: [facility] em 13:46 Acuity: MARU 3 em Historical: - Allergies: 13:48 No Known Allergies; em - PMHx: 13:48 None; em - PSHx: 13:48 Cholecystectomy; shoulder; em - Immunization history:: Adult Immunizations up to date. - Social history:: Smoking status: Patient denies any tobacco usage or history of. Screenin:48 Abuse screen: Denies threats or abuse. Nutritional screening: No deficits noted. em Tuberculosis screening: No symptoms or risk factors identified. Fall Risk None identified. Assessment: 13:48 General: Appears uncomfortable, Behavior is cooperative, anxious. Pain: Complains of em pain in palmar aspect of right forearm Pain currently is 10 out of 10 on a pain scale. Pain began 1 hour ago. Neuro: Level of Consciousness is awake, alert, obeys commands, Oriented to person, place, time, situation. Cardiovascular: Capillary refill < 3 seconds Patient's skin is warm and dry. Respiratory: Airway is patent Respiratory effort is even, unlabored, Respiratory pattern is regular, symmetrical. Derm: Skin is intact, is healthy with good turgor, Skin is pink, warm \T\ dry. Musculoskeletal: Capillary refill < 3 seconds, Swelling present in palmar aspect of right forearm. Injury Description: Puncture sustained to palmar aspect of right forearm was sustained 30-60 minutes ago. 14:22 Reassessment: Patient appears in no apparent distress at this time. placed warm em compresses to wound site. 15:30 Reassessment: Patient appears in no apparent distress at this time. Patient and/or em family updated on plan of care and expected duration. Pain level reassessed. Patient is alert, oriented x 3, equal unlabored respirations, skin warm/dry/pink. 15:35 Reassessment: rates pain 5/10, appears more comfortable. em Vital Signs: 13:46 BP 162 / 94; Pulse 81; Resp 16; Temp 97.6; Pulse Ox 97% on R/A; Weight 72.57 kg; Height em 5 ft. 6 in. (167.64 cm); Pain 10/10; 14:15 BP 165 / 95; Pulse 95; Resp 18; Pulse Ox 98% on R/A; tr6 13:46 Body Mass Index 25.82 (72.57 kg, 167.64 cm) em ED Course: 13:45 Patient arrived in ED. em 13:46 Bird Voss PA is PHCP. jr8 13:46 Mihir Naik MD is Attending Physician. jr8 13:48 Triage completed. em 13:48 Mirela Teran RN is Primary Nurse. tr6 13:48 Arm band placed on. em 13:48 Patient has correct armband on for positive identification. Pulse ox on. NIBP on. em 13:51 Inserted saline lock: 20 gauge in left antecubital area, using aseptic technique. em 14:09 XRAY Forearm RIGHT In Process Unspecified. EDMS 16:00 No provider procedures requiring assistance completed. IV discontinued, intact, em bleeding controlled, No redness/swelling at site. Pressure dressing applied. Administered Medications: 13:51 Drug: Zofran (Ondansetron) 4 mg Route: IVP; Site: left antecubital; em 14:07 Follow up: Response: No adverse reaction em 13:53 Drug: morphine 4 mg Route: IVP; Site: left antecubital; em 14:03 Follow up: Response: No adverse reaction; No change in condition; Pain is unchanged, em physician notified 14:20 Drug: Dilaudid (HYDROmorphone) 1 mg Route: IVP; Site: left antecubital; em 14:46 Follow up: Response: No adverse reaction; No change in condition; Pain is unchanged, em physician notified 15:08 Drug: Ketorolac 30 mg Route: IVP; Site: left antecubital; tr6 15:30 Follow up: Response: No adverse reaction em 15:42 Not Given (Physician Discretion): Dilaudid (HYDROmorphone) 2 mg IVP once; RASS on em ADMIN: Combtv4, Very Agttd3, Agttd2, Rstlss1, AlertClm0, Drwsy-1, Lt Sdtn-2, Mod Sdtn-3, Dp Sdtn-4, UnArsble-5 15:42 Drug: Tetanus-Diphtheria Toxoid Ped 0.5 ml {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 Lot #: [id number]. } Route: IM; Site: left deltoid; 16:01 Follow up: Response: No adverse reaction em Outcome: 15:46 Discharge ordered by MD. robertson 16:00 Discharged to home ambulatory, with family. em 16:00 Condition: good 16:00 Discharge instructions given to patient, Instructed on discharge instructions, follow up and referral plans. medication usage, wound care, Demonstrated understanding of instructions, follow-up care, medications, wound care, Prescriptions given X 2. 16:02 Patient left the ED. em Signatures: Dispatcher [employer] Charbel Olivas RN RN em Bird Voss PA PA jr8 Mirela Teran RN RN tr6
[2020-07-03] MEDS ORDERED: HYDROMORPHONE HCL 2 MG/ML inj ONE (15:51)
[2020-07-03] MEDS ORDERED: TETANUS & DIPHTHERIA TOX,ADULT 0.5 ML VIAL ONE (15:57)
[2020-07-03 16:09] VITALS: TEMP 97.6
[2020-07-03 16:10] VITALS: BP 165/95; O2SAT 98
== END 2020-07-03 16:02 | disposition home or self-care (01) ==
LOC: ER 13:44
DX: T63.511A Toxic effect of contact with stingray, accidental (unintentional), initial encounter (principal); Z23 Encounter for immunization
CPT/HCPCS: 73090; 90471; 90714; 96375; 96374; 99284; J1170 ×2; J2405